=== PATIENT | male | born 1985 | race Caucasian/White ===

== ENCOUNTER 2022-08-24 12:01 | Emergency (ER) | payer OTHER, SELFPAY ==
[2022-08-24 12:04] VITALS: BP 151/78; PULSE 65; RESP 20; TEMP 36.5; O2SAT 100
[2022-08-24] MEDS: SODIUM CHLORIDE 0.9% IV 1,000 ML 999 ML IV CONT (12:45)
[2022-08-24] MEDS: ONDANSETRON INJ 4 MG/2 ML VIAL IV PUSH (12:45)
[2022-08-24 12:53] LABS: Basophils Percent Auto 0.3 % (0.2-1.2); Eosinophils Absolute Auto 0.1 K/mm3 (0-0.3); Eosinophils Percent Auto 0.9 % (0-4.4); Hematocrit 44.4 % (42.0-52.0); Immature Granulocyte Absolute 0.05 K/mm3 (0.00-0.031); Immature Granulocyte Percent A 0.5 % (0-0.5); Lymphocytes Absolute Auto 3.51 K/mm3 (0.9-3.2); Mean Corpuscular HGB Conc 33.8 g/dl (32-36); Mean Corpuscular Hemoglobin 29.4 pg (26-34); Mean Corpuscular Volume 86.9 fl (80-100); Mean Platelet Volume 8.9 fl (7.4-10.4); Monocytes Absolute Auto 0.9 K/mm3 (0.1-0.6); Monocytes Percent Auto 8.6 % (2.6-8.5); Neutrophils Absolute Auto 6.3 K/mm3 (1.3-6.7); Neutrophils Percent Auto 57.7 % (45.5-73.1); Platelet Count Result 361 k/mm3 (150-375); Red Blood Count 5.11 M/mm3 (4.6-6.20); Red Cell Distribution Width 12.1 % (11.5-14.5)
[2022-08-24 13:03] LABS: Alanine Aminotransferase 31 U/L (6-50); Albumin Level 4.4 g/dL (3.5-5.1); Alkaline Phosphatase 73 U/L (38-126); Anion Gap 5 mmol/L (8-16); Aspartate Amino Transferase 24 U/L (17-59); Bilirubin,Total 0.7 mg/dL (0.2-1.3); Blood Urea Nitrogen 14 mg/dL (9-20); Calcium 8.7 mg/dL (8.4-10.2); Carbon Dioxide 29 mmol/L (22-30); Chloride 97 mmol/L (98-107); Estimated CRCL calculation 165 ml/min; Estimated Glomerular Filt Rate > 60; Glucose 98 mg/dL (65-110); Potassium 4.2 mmol/L (3.4-5.0); Sodium 131 mmol/L (137-145)
--- NOTE | 2022-08-24 13:24 | ED.GENADULT ---
HPI - General Adult General Chief complaint: Nausea/Vomiting/Diarrhea Stated complaint: vomiting x3 days Time Seen by Provider: 08/24/22 12:15 History of Present Illness HPI narrative: 37-year-old male presented the ED for evaluation of persistent nausea and vomiting. Patient states he was having some issues with constipation on Wednesday and took some magnesium citrate. Patient states afterwards he did develop some nausea vomiting and had some diarrhea. Patient states that the symptoms all started after taking mag citrate. Patient states he does have some headache as well. Patient denies any abdominal pain. Related Data Allergies Allergy/AdvReac Type Severity Reaction Status Date / Time No Known Allergies Allergy Verified 08/24/22 12:05 Review of Systems Review of Systems: All systems reviewed & are unremarkable except as noted in HPI and below Exam Narrative: APPEARANCE: Well appearing, no pain, no distress, well-nourished. HEAD: normocephalic, atraumatic. EYES: PERRLA/EOMI, conjunctivae clear. NOSE: Normal no drainage EARS:TMS clear with good light reflex. THROAT: Pharynx clear, no exudate. NECK: Supple. No adenopathy, no masses. RESPIRATORY: Airway patent, respirations nonlabored. Clear to auscultation bilaterally, no rales, rhonchi, wheezing. CARDIOVASCULAR: Regular rate and rhythm without murmurs rubs or gallops. ABDOMINAL: Soft, nontender, nondistended, normal bowel sounds MUSCULOSKELETAL: Moves all extremities. Strength/ROM intact, No edema, No calf tenderness. NEURO: Alert. Cranial nerves II through XII intact. Good gait. Good coordination SKIN: Warm, dry. Normal Color Course Course Emergency Course: 37-year-old male presented ED for evaluation of nausea vomiting diarrhea. Patient did feel improved with treatment. Patient was afebrile but did have a leukocytosis of 11.0. Patient's CMP was generally within normal limits. On reexamination patient has no tenderness to palpation. Patient was advised to follow a clear liquid diet and patient was provided Zofran for nausea control. Patient and family were updated on results of the work-up and they were comfortable with the plan for discharge for further Vital Signs Vital signs: Vital Signs Temperature 97.7 F 08/24/22 12:04 Pulse Rate 65 08/24/22 12:04 Respiratory Rate 20 08/24/22 12:04 Blood Pressure 151/78 H 08/24/22 12:04 Pulse Oximetry 100 08/24/22 12:04 Oxygen Delivery Room Air 08/24/22 12:04 Temperature 97.7 F 08/24/22 12:04 Pulse Rate 65 08/24/22 12:04 Respiratory Rate 20 08/24/22 12:04 Blood Pressure 151/78 H 08/24/22 12:04 Pulse Oximetry 100 08/24/22 12:04 Oxygen Delivery Room Air 08/24/22 12:04 Medical Decision Making Vital Signs Vital Signs: Vital Signs Temperature 97.7 F 08/24/22 12:04 Pulse Rate 65 08/24/22 12:04 Respiratory Rate 20 08/24/22 12:04 Blood Pressure 151/78 H 08/24/22 12:04 Pulse Oximetry 100 08/24/22 12:04 Oxygen Delivery Room Air 08/24/22 12:04 Temperature 97.7 F 08/24/22 12:04 Pulse Rate 65 08/24/22 12:04 Respiratory Rate 20 08/24/22 12:04 Blood Pressure 151/78 H 08/24/22 12:04 Pulse Oximetry 100 08/24/22 12:04 Oxygen Delivery Room Air 08/24/22 12:04 Lab Data Lab results reviewed: Yes I reviewed the patient's lab results. 08/24/22 12:44 08/24/22 12:44 Labs: Lab Results 08/24/22 Range/Units 12:44 WBC 11.0 H (4.5-10.0) K/mm3 RBC 5.11 (4.6-6.20) M/mm3 Hgb 15.0 (14.0-18.0) g/dL Hct 44.4 (42.0-52.0) % MCV 86.9 (80-100) fl MCH 29.4 (26-34) pg MCHC 33.8 (32-36) g/dl RDW 12.1 (11.5-14.5) % Plt Count 361 (150-375) k/mm3 MPV 8.9 (7.4-10.4) fl Immature Gran % (Auto) 0.5 (0-0.5) % Neut % (Auto) 57.7 (45.5-73.1) % Lymph % (Auto) 32.0 (18.3-44.2) % [place] % (Auto) 8.6 H (2.6-8.5) % Eos % (Auto) 0.9 (0-4.4) % Baso % (Auto) 0.3 (0.2-1.2) % Lymph # (Au
[2022-08-24] MEDS: KETOROLAC 15 MG/ML VIAL (*BKC) IV PUSH (14:45)
== END 2022-08-24 14:51 | disposition home or self-care (01) ==
PROVIDERS: Emergency Provider Emergency Medicine
DX: R11.2 Nausea with vomiting, unspecified (principal); R51.9 Headache, unspecified
CPT/HCPCS: 36415; 80053; 85025; 96361; 96374; 96375; 99284; J1885; J2405; J7030